=== PATIENT | male | born 1990 | race African-American/Black ===

== ENCOUNTER 2023-04-10 22:53 | Inpatient (IN) | payer MEDICAID ==
[~2023-04-10] VITALS: Ht 188 cm; Wt 105.6 kg
[2023-04-10 23:28] LABS: BASOPHILS % (AUTO) 0.7 % (0.0-2.0); EOSINOPHILS % (AUTO) 0.6 % (1.0-6.0); HEMATOCRIT 49.2 % (41-53); HEMOGLOBIN 16.5 g/dL (13.5-17.5); LYMPHOCYTES # (AUTO) 2.5 K/uL (1.0-4.8); LYMPHOCYTES % (AUTO) 34.2 % (22.0-44.0); MEAN CORPUSCULAR HEMOGLOBIN 30.1 pg (26.0-34.0); MEAN CORPUSCULAR HGB CONC 33.6 G/dL (31.0-37.0); MEAN CORPUSCULAR VOLUME 90 fL (80-100); MONOCYTES # (AUTO) 0.5 K/uL (0.1-1.0); MONOCYTES % (AUTO) 7.1 % (2.0-9.0); NEUTROPHILS # (AUTO) 4.2 K/uL (1.8-7.7); NEUTROPHILS % (AUTO) 57.4 % (40.0-70.0); PLATELET COUNT (AUTO) 208 K/uL (150-450); RED BLOOD CELL COUNT(AUTO) 5.49 MIL/uL (4.50-5.90); RED CELL DISTRIBUTION WIDTH 13.1 % (11.5-14.5); WHITE BLOOD COUNT (AUTO) 7.4 K/uL (4.5-11.0)
[2023-04-10 23:38] LABS: ANION GAP 14 mmol/L (8-16); CALCIUM, TOTAL 9.3 mg/dL (8.8-10.5); CARBON DIOXIDE 20 mmol/L (22-29); CHLORIDE 101 mmol/L (98-107); CREATININE 1.11 mg/dL (0.60-1.30); GLOMERULAR FILTR. RATE CALC > 60 mL/min (>60); GLUCOSE,RANDOM 84 mg/dL (70-110); POTASSIUM 4.2 mmol/L (3.5-5.1); SODIUM SERUM 135 mmol/L (136-145); UREA NITROGEN, BLOOD 16 mg/dL (7-18)
[2023-04-10 23:44] LABS: ALANINE AMINOTRANSFERASE 31 U/L (12-78); ALBUMIN 4.6 g/dL (3.4-5.0); ALKALINE PHOSPHATASE 71 U/L (46-116); ASPARTATE AMINOTRANSFERASE 35 U/L (15-37); BILIRUBIN,TOTAL 1.6 mg/dL (0.1-1.0); TOTAL PROTEIN, SERUM 8.6 g/dL (6.4-8.2)
[2023-04-10 23:45] LABS: ALCOHOL, BLOOD (SERUM) < 3 mg/dL (0-10)
[2023-04-11] MEDS ORDERED: DiphenhydrAMINE HCL 50 MG/ML VIAL IM ONE (00:15)
[2023-04-11] MEDS ORDERED: HALOPERIDOL LACTATE 5 MG/ML VIAL IM ONE (00:15)
[2023-04-11] MEDS ORDERED: LORazepam 2 MG/ML VIAL IM ONE (00:15)
[2023-04-11 00:33] LABS: COVID AG,FIA SOURCE NASAL SWAB
[2023-04-11] MEDS ORDERED: ZOLPIDEM TARTRATE 10 MG TABLET PO PRN (01:00)
[2023-04-11] MEDS ORDERED: HALOPERIDOL 5 MG TABLET PO PRN (01:00)
[2023-04-11] MEDS ORDERED: LORazepam 2 MG TABLET PO PRN (01:00)
[2023-04-11 01:15] LABS: SARS-COV2 (COVID) ANTIGEN,FIA Negative (Negative)
[2023-04-11 02:58] VITALS: RESP 18
[2023-04-11] MEDS ORDERED: IBUPROFEN 400 MG TABLET PO PRN (07:30)
[2023-04-11] MEDS ORDERED: CloNIDine HCL 0.1 MG TABLET PO PRN (07:30)
[2023-04-11] MEDS ORDERED: NICOTINE 14 MG/24 HOUR PATCH TD PRN (07:30)
[2023-04-11] MEDS ORDERED: MAGNESIUM HYDROXIDE SUSPENSION 30 ML UDCUP PO PRN (07:30)
[2023-04-11] MEDS ORDERED: ALBUTEROL SULFATE HFA 90 MCG/PUFF 8 GM INHALER IH PRN (07:30)
[2023-04-11] MEDS ORDERED: PETROLATUM,WHITE 28 GM JELLY TP PRN (07:30)
[2023-04-11] MEDS ORDERED: MAG HYDROX/ALUMINUM HYD/SIMETH ES 30 ML SUSPENSION UDCUP PO PRN (07:30)
[2023-04-11] MEDS ORDERED: ACETAMINOPHEN 325 MG TABLET PO PRN (07:30)
[2023-04-11] MEDS ORDERED: GuaiFENesin/D-METHORPHAN [SUGAR-FREE] 200-20MG/10 ML SYRUP UDCUP PO PRN (07:30)
[2023-04-11] MEDS ORDERED: LOPERAMIDE HCL 2 MG CAPSULE PO PRN (07:30)
[2023-04-11] MEDS ORDERED: DOCUSATE SODIUM 100 MG CAPSULE PO PRN (07:30)
[2023-04-11] MEDS ORDERED: ONDANSETRON HCL 4 MG TABLET PO PRN (07:30)
[2023-04-11 09:36] VITALS: BP 150/77; PULSE 99; RESP 20; TEMP 97.2; O2SAT 99
[2023-04-11 20:47] VITALS: RESP 18; TEMP 97.5
[2023-04-11] MEDS: RisperiDONE 1 MG TABLET PO SCH (21:00)
[2023-04-12 07:22] LABS: THYROID STIMULATING HORMONE 1.94 uIU/mL (0.36-3.74)
[2023-04-12 07:40] LABS: HEMOGLOBIN A1C 5.3 % (3.8-5.6)
[2023-04-12 08:00] VITALS: BP_SYST 119; BP_SYST 150; BP_DIAS 66; BP_DIAS 93; PULSE 75; PULSE 84; RESP 17; TEMP 97.6; O2SAT 98
[2023-04-12] MEDS: RisperiDONE 1 MG TABLET PO SCH ×2 (08:40→20:18)
[2023-04-12 09:07] LABS: CHOL/HDL RATIO 4.8 (4.2-7.3)
[2023-04-12 20:24] VITALS: RESP 18; TEMP 97.7
[2023-04-13] MEDS: RisperiDONE 1 MG TABLET PO SCH ×2 (09:00→20:10)
[2023-04-13 12:13] VITALS: BP 134/89; PULSE 97; RESP 18; TEMP 97.9; O2SAT 97
[2023-04-13 20:16] VITALS: BP 153/93; PULSE 87; RESP 18; O2SAT 98
[2023-04-14 08:23] VITALS: BP 148/91; PULSE 78; RESP 18; TEMP 98.2; O2SAT 97
[2023-04-14] MEDS: RisperiDONE 1 MG TABLET PO SCH (08:51)
[2023-04-14] MEDS ORDERED: RISP1TAB98 PO (13:32)
== END 2023-04-14 13:40 | disposition home or self-care (01) | DRG 751 ==
LOC: EMS 22:55 → 3EC 04-11 01:19
PROVIDERS: ADMIT Psychiatry & Neurology Psychiatry; ATTEND Psychiatry & Neurology Psychiatry
PROC: GZHZZZZ Group Psychotherapy (ICD-10-PCS; principal; 2023-04-11)
DX: F29 Unspecified psychosis not due to a substance or known physiological condition (principal); E87.1 Hypo-osmolality and hyponatremia; G47.00 Insomnia, unspecified; E66.3 Overweight; Z20.822 Contact with and (suspected) exposure to COVID-19; Z59.00 Homelessness unspecified; Z79.899 Other long term (current) drug therapy; Z68.29 Body mass index [BMI] 29.0-29.9, adult
CPT/HCPCS: 80053; 80061; 83036; 84443; 85025; 99285; G0480; J1200; J1630; J2060